=== PATIENT | female | born 1965 | race Asian ===

== ENCOUNTER 2017-07-16 13:45 | Day surgery (SDC) | payer MEDICAID, OTHER ==
[~2017-07-16] VITALS: Ht 167.6 cm; Wt 46.6 kg
[2017-07-16 14:52] VITALS: Ht 167.6 cm; Wt 46.6 kg
[2017-07-16] MEDS ORDERED: HYPERTENSION MED (14:54)
[2017-07-16 15:09] VITALS: BP 125/68; PULSE 87; RESP 18
--- NOTE | 2017-07-16 15:49 | OPPN ---
Date/Time of Note Date/Time of Note DATE: 07/16/17 TIME: 15:46 Proc Note GI Procedure Date 07/16/17 Indication: screening/surveillance Pre-procedure Diagnosis r/o colon polyps Post-procedure Diagnosis normal Procedure Performed: Colonoscopy Surgeon see signature line Lightout Examiner none Anesthesia Type: moderate sedation Tourniquet Time none EBL none Transfusion required none Biopsy 1: none Grafts/Implants none Tubes/Drains none Complication(s) none Disposition: home Procedure Description coolonoscopy with mod sedation normal findings see dictation ROSALBA EDMONDS MD Jul 16, 2017 15:49
[2017-07-16] MEDS ORDERED: MIDAZOLAM 1 MG/ML 2 ML INJ ONE ×2 (15:50→15:51)
[2017-07-16] MEDS ORDERED: FENTAnyl 50 MCG/ML VIAL ONE (15:50)
[2017-07-16 16:12] VITALS: BP 106/59; RESP 17
--- NOTE | 2017-07-17 07:06 | GILP ---
DATE OF PROCEDURE: PREOPERATIVE DIAGNOSIS: Screening colonoscopy to rule out colon polyps. POSTOPERATIVE DIAGNOSES: Normal colonoscopy. DESCRIPTION OF PROCEDURE: After informed written consent was obtained, the patient was asked to lie on the left lateral side, 3 mg Versed and 50 mcg of fentanyl was given as intravenous anesthesia. When the patient became somnolent, the Olympus video colonoscope was introduced into the rectum and scope was advanced all the way to the cecum. Entire colon appeared normal with no mucosal abnormali ty, no polyps noted. On the way out, no additional abnormalities detected except minimal external h emorrhoids. Endoscope at this time was withdrawn and the procedure was terminated. PLAN: Recommend repeat colonoscopy in 10 years. Dictated By: ROSALBA CORCORAN/NICOLE Conf#: [id number] DID#: [id number]
== END 2017-07-16 18:02 | disposition home or self-care (01) ==
LOC: GIL 13:45
PROVIDERS: ATTEND Internal Medicine Gastroenterology
DX: Z12.11 Encounter for screening for malignant neoplasm of colon (principal)
CPT/HCPCS: 45378; 84703; J2250; J3010